=== PATIENT | female | born 1950 | race Caucasian/White ===

== ENCOUNTER 2019-08-02 06:48 | Outpatient (CLI) | payer SELFPAY | END 2019-08-02 23:59 | disposition home or self-care (01) | LOC: HW VAS 06:48 | DX: Z13.6 Encounter for screening for cardiovascular disorders (principal); I10 Essential (primary) hypertension ==

== ENCOUNTER 2023-12-29 13:37 | Day surgery (SDC) | payer MEDICARE, OTHER ==
[~2023-12-29] VITALS: Ht 175.3 cm; Wt 80.0 kg
[2023-12-29] VITALS (18 sets, daily range): BP systolic 111–137; BP diastolic 58–88; PULSE 60–64; RESP 16; TEMP 98; O2SAT 90–97
[~2023-12-29 13:37] MED LIST: APIX5TAB3 PO; BIOT50004 PO; CELE200C PO; CHOL500044 PO; CYAN250010 PO; FAMO-280 PO; HYDR25TA5 PO; LISI20TA28 PO; MAGN400T39 PO; MELA10TA2 PO; METO-539 PO; VALA100031 PO
[2023-12-29 14:47] LABS: BASOPHILS # (AUTO) 0.1 X10'3 (0-0.2); BASOPHILS % (AUTO) 0.3 % (0-1); EOSINOPHILS # (AUTO) 0.1 X10'3 (0-0.9); EOSINOPHILS % (AUTO) 0.6 % (0-6); HEMATOCRIT 40.8 % (35.0-45.0); HEMOGLOBIN 13.4 g/dl (12.0-16.0); LYMPHOCYTES # (AUTO) 11.3 X10'3 (1.1-4.8); LYMPHOCYTES % (AUTO) 66.3 % (21-51); MEAN CORPUSCULAR HEMOGLOBIN 28.9 PG (27.0-31.0); MEAN CORPUSCULAR HGB CONC 32.8 g/dL (33.0-36.5); MEAN CORPUSCULAR VOLUME 88.2 FL (78-98); MONOCYTES # (AUTO) 0.9 X10'3 (0-0.9); NEUTROPHILS # (AUTO) 4.8 X10'3 (1.8-7.7); NEUTROPHILS % (AUTO) 27.8 % (42-75); PLATELET COUNT 165 X10'3 (140-440); RED BLOOD COUNT 4.63 X10'6 (4.20-5.60); RED CELL DISTRIBUTION WIDTH 13.8 % (11.5-14.5); WHITE BLOOD COUNT 17.1 X10'3 (4.5-11.0)
[2023-12-29 14:53] LABS: ALBUMIN 3.7 G/DL (3.4-5.0); ANION GAP 10 (8-16); BLOOD UREA NITROGEN 15 MG/DL (7-18); BUN/CREATININE RATIO 21.7 (10.0-20.0); CHLORIDE 108 MMOL/L (99-107); CREATININE 0.69 MG/DL (0.40-0.90); GLUCOSE 99 MG/DL (70-104); SODIUM 143 MMOL/L (135-145); TOTAL CARBON DIOXIDE 25.2 MMOL/L (24-32); eCRCL 77 ML/MIN; eGFR 84 ML/MIN
[2023-12-29 14:56] LABS: APTT 25 SECONDS (22-32); PROTHROMBIN TIME 11.2 SECONDS (9.0-12.0)
[2023-12-29] MEDS: fentaNYL/PF 50MCG/1 ML 2ML syringe IV ONE (14:57)
[2023-12-29] MEDS: MIDAZolam 1mg/ml 10ml vial IV ONE (14:57)
[2023-12-29 15:35] LABS: TOTAL CELLS COUNTED 100
[2023-12-29 15:37] LABS: PLATELET ESTIMATE NORMAL; SMUDGE CELLS 2+
== END 2023-12-29 16:30 | disposition home or self-care (01) ==
LOC: SSTAY O 13:37
PROVIDERS: ATTEND Student in an Organized Health Care Education/Training Program
DX: I48.91 Unspecified atrial fibrillation (principal); I10 Essential (primary) hypertension; I25.10 Atherosclerotic heart disease of native coronary artery without angina pectoris; E78.00 Pure hypercholesterolemia, unspecified; Z79.899 Other long term (current) drug therapy; Z98.890 Other specified postprocedural states; Z88.0 Allergy status to penicillin; Z82.49 Family history of ischemic heart disease and other diseases of the circulatory system; Z81.8 Family history of other mental and behavioral disorders; Z80.3 Family history of malignant neoplasm of breast; Z80.1 Family history of malignant neoplasm of trachea, bronchus and lung
CPT/HCPCS: 80048; 85025; 85610; 85730; 93325; 94760; C8925; J2250; J3010; J7030; 85007; 93312